=== PATIENT | male | born 1935 | race Caucasian/White ===

== ENCOUNTER 2016-11-02 17:54 | Emergency (ER) | payer OTHER ==
[~2016-11-02] VITALS: Ht 172.7 cm; Wt 47.1 kg
[~2016-11-02 17:54] MED LIST: ATARAX,VISTARIL50 MG PO; ATIVAN0.5 MG PO; DESYREL100 MG PO; DILANTIN100 MG PO; LIPITOR40 MG PO; LOMOTIL TABLET1 EACH PO; MIRALAX255 GM PO; NITROSTAT0.4 MG SL; PAXIL20 MG PO; PROTONIX40 MG PO; TENORMIN50 MG PO; ZOFRAN ODT4 MG PO; ZYPREXA10 MG PO
[2016-11-02 21:40] VITALS: BP 130/70
== END 2016-11-02 22:04 | disposition home or self-care (01) ==
LOC: EME → EDBD 17:54 → EME 22:04
DX: S20.211A Contusion of right front wall of thorax, initial encounter (principal); S20.212A Contusion of left front wall of thorax, initial encounter; W18.39XA Other fall on same level, initial encounter; Y92.199 Unspecified place in other specified residential institution as the place of occurrence of the external cause; R91.1 Solitary pulmonary nodule; F03.90 Unspecified dementia, unspecified severity, without behavioral disturbance, psychotic disturbance, mood disturbance, and anxiety; I10 Essential (primary) hypertension
CPT/HCPCS: 71020; 99281; 99284

== ENCOUNTER 2017-03-12 19:03 | Emergency (ER) | payer OTHER ==
[~2017-03-12] VITALS: Ht 170.2 cm; Wt 68.0 kg
[2017-03-12 20:17] LABS: HEMATOCRIT 38.4 % (38.0-50.0); MCH 30.4 PG (29.0-34.0); MCHC 33.1 G/DL (30.0-36.0); MCV 91.9 FL (86-99); MEAN PLAT.VOLUME 9.8 uM^3 (9.0-12.4); PLATELET COUNT 204 K/uL (156-360); RBC DIS.WIDTH-CV 13.5 % (11.8-14.6); RBC DIS.WIDTH-SD 45.4 % (39-53); RED BLOOD COUNT 4.18 M/uL (4.00-5.50); WHITE BLOOD COUNT 5.9 K/uL (4.1-10.2)
[2017-03-12 20:35] LABS: CHLORIDE 109 mEq/L (99-109); POTASSIUM 3.8 mEq/L (3.7-5.4); SODIUM 143 mEq/L (136-147)
[2017-03-12 20:37] LABS: GLUCOSE 140 mg/dL (70-99)
[2017-03-12 20:38] LABS: ANION GAP 9 MEQ/L (2-14)
[2017-03-12 20:41] LABS: GFR ESTIMATE (CALCULATED) > 59 mL/min/
[2017-03-12 20:42] LABS: UREA NITROGEN (BUN) 20 mg/dL (9-23)
[2017-03-12 22:04] LABS: ADD MIUA? YES; BILIRUBIN NEGATIVE; BLOOD NEGATIVE; COLOR YELLOW ((YELLOW)); GLUCOSE (STRIP) NEGATIVE; KETONES NEGATIVE; LEUKOCYTES LARGE; NITRITE NEGATIVE; PROTEIN (STRIP) 30; SPECIFIC GRAVITY 1.018 (1.000-1.030); UROBILINOGEN 0.2 MG/DL (0.2-1.0)
[2017-03-12 22:28] LABS: BACTERIA 3+ /HPF; CASTS NONE SEEN /LPF; CRYSTALS NONE SEEN; EPITHELIAL CELLS 1+ /HPF; MUCUS NONE SEEN /LPF; RED BLOOD CELLS 0-5 /HPF (0-5); UCUL ADDED? YES; WHITE BLOOD CELLS TNTC /HPF (0-5)
[2017-03-12] MEDS ORDERED: KEFLEX500 MG PO (22:40)
[2017-03-12 23:19] VITALS: BP 135/74
== END 2017-03-12 23:21 | disposition home or self-care (01) ==
LOC: EME 19:03 → EXP 19:03
DX: N39.0 Urinary tract infection, site not specified (principal); F03.91 Unspecified dementia, unspecified severity, with behavioral disturbance; I10 Essential (primary) hypertension; R56.9 Unspecified convulsions
CPT/HCPCS: 80048; 81003; 85027; 87077; 87086; 87186; 99281; 99284; J0696

== ENCOUNTER 2017-06-18 19:28 | Emergency (ER) | payer OTHER ==
[~2017-06-18] VITALS: Ht 170.2 cm; Wt 68.1 kg
[~2017-06-18 19:28] MED LIST changes: +KEFLEX500 MG PO
[2017-06-18 22:24] LABS: HEMATOCRIT 32.7 % (38.0-50.0); MCH 30.9 PG (29.0-34.0); MCHC 33.6 G/DL (30.0-36.0); MCV 91.9 FL (86-99); MEAN PLAT.VOLUME 9.7 uM^3 (9.0-12.4); PLATELET COUNT 179 K/uL (156-360); RBC DIS.WIDTH-CV 13.2 % (11.8-14.6); RBC DIS.WIDTH-SD 44.9 % (39-53); RED BLOOD COUNT 3.56 M/uL (4.00-5.50); WHITE BLOOD COUNT 5.5 K/uL (4.1-10.2)
[2017-06-18] MEDS ORDERED: CIPROFLOXACIN H10 ML LEFT EYE (22:32)
[2017-06-18] MEDS ORDERED: AUGMENTIN875 MG PO (22:32)
[2017-06-18 22:37] LABS: ERTH.SED.RATE 12 MM/HR (0-20)
[2017-06-18 22:38] LABS: CHLORIDE 110 mEq/L (99-109); POTASSIUM 3.9 mEq/L (3.7-5.4); SODIUM 142 mEq/L (136-147)
[2017-06-18 22:39] LABS: GLUCOSE 101 mg/dL (70-99)
[2017-06-18 22:41] LABS: ANION GAP 9 MEQ/L (2-14)
[2017-06-18 22:43] LABS: GFR ESTIMATE (CALCULATED) > 59 mL/min/
[2017-06-18 22:44] LABS: UREA NITROGEN (BUN) 17 mg/dL (9-23)
[2017-06-18 23:42] VITALS: BP 159/63
== END 2017-06-18 23:45 | disposition home or self-care (01) ==
LOC: EME 19:28
PROVIDERS: Emergency Medicine
DX: L03.213 Periorbital cellulitis (principal); H10.32 Unspecified acute conjunctivitis, left eye; I10 Essential (primary) hypertension; F03.90 Unspecified dementia, unspecified severity, without behavioral disturbance, psychotic disturbance, mood disturbance, and anxiety; R56.9 Unspecified convulsions
CPT/HCPCS: 80048; 85027; 85651; 99281; 99284

== ENCOUNTER 2017-08-11 18:56 | Emergency (ER) | payer OTHER ==
[~2017-08-11] VITALS: Ht 177.8 cm; Wt 84.1 kg
[~2017-08-11 18:56] MED LIST changes: +AUGMENTIN875 MG PO; +CIPROFLOXACIN H10 ML LEFT EYE
[2017-08-11 22:50] VITALS: BP 145/99
== END 2017-08-11 22:51 | disposition home or self-care (01) ==
LOC: EME → EDBD 18:56 → EME 18:56
PROC: 0HQ0XZZ Repair Scalp Skin, External Approach (ICD-10-PCS; principal; 2017-08-11)
DX: S01.01XA Laceration without foreign body of scalp, initial encounter (principal); W19.XXXA Unspecified fall, initial encounter; Y92.129 Unspecified place in nursing home as the place of occurrence of the external cause; F03.90 Unspecified dementia, unspecified severity, without behavioral disturbance, psychotic disturbance, mood disturbance, and anxiety; Z91.81 History of falling; I10 Essential (primary) hypertension; R56.9 Unspecified convulsions; Z66 Do not resuscitate; Z88.2 Allergy status to sulfonamides
CPT/HCPCS: 70450; 72125; 99281; 99285

== ENCOUNTER 2017-08-19 16:11 | Emergency (ER) | payer OTHER ==
[~2017-08-19] VITALS: Ht 172.7 cm; Wt 66.4 kg
[2017-08-19 17:05] LABS: HEMATOCRIT 33.5 % (38.0-50.0); MCH 31.8 PG (29.0-34.0); MCHC 33.1 G/DL (30.0-36.0); MEAN PLAT.VOLUME 9.6 uM^3 (9.0-12.4); PLATELET COUNT 165 K/uL (156-360); RBC DIS.WIDTH-CV 14.5 % (11.8-14.6); RBC DIS.WIDTH-SD 50.9 % (39-53); RED BLOOD COUNT 3.49 M/uL (4.00-5.50); WHITE BLOOD COUNT 2.5 K/uL (4.1-10.2)
[2017-08-19 17:16] LABS: CHLORIDE 108 mEq/L (99-109); POTASSIUM 3.6 mEq/L (3.7-5.4); SODIUM 139 mEq/L (136-147)
[2017-08-19 17:17] LABS: MAGNESIUM 1.8 mg/dL (1.3-2.7)
[2017-08-19 17:19] LABS: GLUCOSE 112 mg/dL (70-99)
[2017-08-19 17:20] LABS: ANION GAP 8 MEQ/L (2-14)
[2017-08-19 17:21] LABS: TOTAL BILIRUBIN 0.3 mg/dL (0.0-1.0)
[2017-08-19 17:22] LABS: ALKALINE PHOSPHATASE 135 IU/L (3-129)
[2017-08-19 17:23] LABS: GFR ESTIMATE (CALCULATED) > 59 mL/min/
[2017-08-19 17:24] LABS: UREA NITROGEN (BUN) 20 mg/dL (9-23)
[2017-08-19 17:26] LABS: LIPASE 36 U/L (1.0-51.0)
[2017-08-19 19:30] VITALS: BP 147/60
== END 2017-08-19 19:43 ==
LOC: EME 16:11
PROVIDERS: Physician Assistant Medical
DX: Z77.098 Contact with and (suspected) exposure to other hazardous, chiefly nonmedicinal, chemicals (principal); F03.90 Unspecified dementia, unspecified severity, without behavioral disturbance, psychotic disturbance, mood disturbance, and anxiety; R91.8 Other nonspecific abnormal finding of lung field
CPT/HCPCS: 71010; 80053; 81003; 83690; 83735; 85027; 93005; 99281; 99285

== ENCOUNTER 2017-11-12 04:14 | Emergency (ER) | payer OTHER ==
[~2017-11-12] VITALS: Ht 177.8 cm; Wt 62.0 kg
[2017-11-12 06:35] VITALS: BP 139/80
== END 2017-11-12 06:58 | disposition home or self-care (01) ==
LOC: EME 04:14
PROC: 0HQ0XZZ Repair Scalp Skin, External Approach (ICD-10-PCS; principal; 2017-11-12)
DX: S01.01XA Laceration without foreign body of scalp, initial encounter (principal); W18.30XA Fall on same level, unspecified, initial encounter; Y92.129 Unspecified place in nursing home as the place of occurrence of the external cause; F03.90 Unspecified dementia, unspecified severity, without behavioral disturbance, psychotic disturbance, mood disturbance, and anxiety; Z66 Do not resuscitate; I10 Essential (primary) hypertension; F41.9 Anxiety disorder, unspecified; R56.9 Unspecified convulsions; Z88.2 Allergy status to sulfonamides
CPT/HCPCS: 99281; 99284

== ENCOUNTER 2017-11-25 21:08 | Emergency (ER) | payer OTHER ==
[~2017-11-25] VITALS: Ht 172.7 cm; Wt 63.6 kg
[2017-11-25 22:27] VITALS: BP 117/62
== END 2017-11-25 22:32 | disposition home or self-care (01) ==
LOC: EME → EDBD 21:08 → EME 22:32
DX: S09.90XA Unspecified injury of head, initial encounter (principal); W01.10XA Fall on same level from slipping, tripping and stumbling with subsequent striking against unspecified object, initial encounter; F03.90 Unspecified dementia, unspecified severity, without behavioral disturbance, psychotic disturbance, mood disturbance, and anxiety; F41.9 Anxiety disorder, unspecified; I10 Essential (primary) hypertension; R56.9 Unspecified convulsions; Z88.2 Allergy status to sulfonamides
CPT/HCPCS: 99281; 99284